=== PATIENT | female | born 1990 | race African-American/Black ===

== ENCOUNTER 2018-10-22 12:04 | Day surgery (SDC) | payer BC ==
[2018-10-22 12:39] VITALS: BMI 40.4
[2018-10-22] MEDS ORDERED: hydrALAZINE 20 MG/ML VIAL SLOW IVP PRN (12:55)
--- NOTE | 2018-10-22 13:01 | PDOC.EVN ---
Event Note - Event Note Event Note: H&P Dictated Here for BP obs DX: CHTN on medication #[id number]
--- NOTE | 2018-10-22 13:15 | HP ---
TIME: 1255 hours. LOCATION: Labor and Delivery triage. REASON FOR EVALUATION: Chronic hypertension, on medication at 33 weeks. This is a patient of Dr. Muhammad. HISTORY OF PRESENT ILLNESS: This is a 28-year-old, G8, P5, with 4 prior C-sections at term and one (the last delivery) at 34 weeks due to preeclampsia, with known history of chronic hypertension, obesity, who arrives to Labor and Delivery for "increased blood pressures at home." She denies headaches or visual changes, but states that occasionally she does feel dizzy. She has no vaginal bleeding or leakage of fluid and she has good movement. She has been taking her blood pressure medicine daily. PAST MEDICAL HISTORY: Significant for obesity with a BMI of 40.4. She also has a history of chronic hypertension and she takes Procardia 30 mg XL daily. She is also on low-dose aspirin. MEDICATIONS: Include; 1. Procardia. 2. Baby aspirin. PAST SURGICAL HISTORY: Includes 5 prior C-sections. ALLERGIES: NONE. OBSTETRICS HISTORY: As previously dictated. REVIEW OF SYSTEMS: Complete review of systems was checked and is otherwise negative unless specified in the HPI. PHYSICAL EXAMINATION: VITAL SIGNS: Her blood pressure is 145/87 and 141/83, pulse is anywhere from 105 to 115, she is afebrile and respirations are 18 and nonlabored. GENERAL: She is in no acute distress. ABDOMEN: Gravid, soft, and nontender and there is no evidence of vaginal bleeding or leakage of fluid on perineal inspection. On monitors, heart tones are in the 140s and they are category I. There are no contractions on tocodynamometer. Interventions ordered. I have ordered a CBC and a CMP just for baseline record. ASSESSMENT: This is a patient with known chronic hypertension, who is a grand multiparous patient, at 33 weeks, with reassuring/reactive nonstress test with stable non-severe blood pressures. PLAN: 1. Reassurance given. 2. I have ordered a CMP and a CBC for baseline. 3. No evidence of severe pressures at this time. 4. We will likely follow up as an outpatient once her labs return. Job ID: [id number]
[2018-10-22 13:26] LABS: #Eosinphils 0.1 thou/uL (0.0-0.7); #Lymphocytes 1.5 thou/uL (1.20-3.40); #Monocytes 0.5 thou/uL (0.11-0.59); #Neutrophils 6.5 thou/uL (1.40-6.50); %Basophils 0.2 % (0.0-1.0); %Eosinophils 0.6 % (0.0-10.0); %Lymphocytes 17.7 % (21.0-51.0); %Monocytes 5.8 % (0.0-10.0); %Neutrophils 75.7 % (42.0-75.0); Hemoglobin 11.7 g/dL (12.0-16.0); Mean Corpuscular HGB CONC 33.3 g/dL (32.0-36.0); Mean Corpuscular Hemoglobin 28.4 pg (27.0-31.0); Mean Corpuscular Volume 85.3 fL (78.0-98.0); Mean Platelet Volume 10.9 fL (7.4-10.4); Platelet Count 145 thou/uL (130-400); Red Blood Cell (RBC) Count 4.11 mill/uL (4.20-5.40); White Blood Cell (WBC) Count 8.7 thou/uL (4.8-10.8)
--- NOTE | 2018-10-22 13:47 | PDOC.EVN ---
Event Note - Event Note Event Note: BPs nonsevere and ok on review
--- NOTE | 2018-10-22 13:47 | PDOC.EVN ---
Event Note - Event Note Event Note: CBC is normal CMP is pending
[2018-10-22 13:50] LABS: ALT (SGPT) Less than 7 U/L (8-55); AST (SGOT) 13 U/L (5-34); Albumin 3.5 g/dL (3.5-5.0); Alkaline Phosphatase 93 U/L (40-150); Anion Gap 11 mmol/L (10-20); BUN (Urea Nitrogen) 6 mg/dL (7.0-18.7); Bilirubin, Total 0.4 mg/dL (0.2-1.2); Calc. Creatinine Clearance 184 mL/min (70-130); Calcium 9.6 mg/dL (7.8-10.44); Carbon Dioxide 23 mmol/L (22-29); Chloride 106 mmol/L (98-107); Estimated GFR-MDRD Greater than 90; Globulin 3.8 g/dL (2.4-3.5); Glucose 103 mg/dL (70-105); Potassium 3.4 mmol/L (3.5-5.1); Protein, Total 7.3 g/dL (6.0-8.3); Sodium 137 mmol/L (136-145)
== END 2018-10-22 14:18 | disposition home or self-care (01) ==
LOC: L&D/OP 12:04
PROVIDERS: ATTEND Obstetrics & Gynecology
DX: O10.913 Unspecified pre-existing hypertension complicating pregnancy, third trimester (principal); O09.43 Supervision of pregnancy with grand multiparity, third trimester; O99.213 Obesity complicating pregnancy, third trimester; E66.9 Obesity, unspecified; Z79.82 Long term (current) use of aspirin; Z3A.33 33 weeks gestation of pregnancy
CPT/HCPCS: 36415; 80053; 85025; 99283

== ENCOUNTER 2019-02-18 10:50 | Outpatient (CLI) | payer BC ==
--- NOTE | 2019-02-18 11:09 | RAD ---
EXAM: Chest 2 views: HISTORY: Dyspnea COMPARISON: None. FINDINGS: There is a normal-sized cardiomediastinal silhouette. There is no evidence of consolidation, mass, or pleural effusion. The bones are unremarkable. IMPRESSION: No evidence of acute cardiopulmonary disease
== END 2019-02-18 10:51 | disposition home or self-care (01) ==
LOC: RAD 10:50
PROVIDERS: ATTEND Internal Medicine
DX: R06.00 Dyspnea, unspecified (principal)
CPT/HCPCS: 71046

== ENCOUNTER 2019-07-03 05:21 | Emergency (ER) | payer BC ==
[2019-07-03 06:05] LABS: #Basophils 0.1 thou/uL (0.0-0.2); #Eosinphils 0.1 thou/uL (0.0-0.7); #Lymphocytes 2.3 thou/uL (1.20-3.40); #Monocytes 0.6 thou/uL (0.11-0.59); #Neutrophils 4.8 thou/uL (1.40-6.50); %Basophils 1.5 % (0.0-1.0); %Eosinophils 1.8 % (0.0-10.0); %Monocytes 7.1 % (0.0-10.0); %Neutrophils 60.6 % (42.0-75.0); Hemoglobin 13.2 g/dL (12.0-16.0); Mean Corpuscular HGB CONC 31.6 g/dL (32.0-36.0); Mean Corpuscular Hemoglobin 27.3 pg (27.0-31.0); Mean Corpuscular Volume 86.3 fL (78.0-98.0); Mean Platelet Volume 10.5 fL (7.4-10.4); Platelet Count 220 thou/uL (130-400); RBC Distribution Width 13.2 % (11.5-14.5); Red Blood Cell (RBC) Count 4.85 mill/uL (4.20-5.40); White Blood Cell (WBC) Count 7.9 thou/uL (4.8-10.8)
[2019-07-03 06:10] LABS: BHCG - Serum Negative (NEGATIVE); Pregs Control Background? CLEAR/WHITE (CLR/WHITE); Pregs Control Bar Appear? YES (CONTROL BAR)
[2019-07-03 06:30] LABS: ALT (SGPT) 17 U/L (8-55); AST (SGOT) 25 U/L (5-34); Albumin 4.3 g/dL (3.5-5.0); Alkaline Phosphatase 111 U/L (40-110); Anion Gap 16 mmol/L (10-20); BUN (Urea Nitrogen) 13 mg/dL (7.0-18.7); Bilirubin, Total 0.4 mg/dL (0.2-1.2); Calc. Creatinine Clearance 0 mL/min (70-130); Calcium 9.4 mg/dL (7.8-10.44); Carbon Dioxide 21 mmol/L (22-29); Chloride 105 mmol/L (98-107); Estimated GFR-MDRD Greater than 90; Globulin 4.1 g/dL (2.4-3.5); Glucose 107 mg/dL (70-105); Potassium 4.2 mmol/L (3.5-5.1); Protein, Total 8.4 g/dL (6.0-8.3); Sodium 138 mmol/L (136-145)
--- NOTE | 2019-07-03 08:17 | CT ---
PRELIMINARY REPORT/[facility]/EMERGENCY AFTER HOURS PROCEDURE: EXAM: CTA Chest, With Contrast. DATE/ TIME: 07/03/2019, 6:10 AM INDICATION: Palpitations on and off x 2 weeks. Left-sided neck pain. TECHNIQUE: During the rapid intravenous administration of 100 mL Isovue-370, helical CT of the chest was performed utilizing angiographic protocol. MPRs and multiplanar MIPs were generated and reviewe d. Exam was performed using one or more of the following dose reduction techniques: automated expos ure control, adjustment of the mA and/or kV according to patient size, or use of iterative reconstruc tion technique. COMPARISON: None. FINDINGS: The heart is not enlarged. Pulmonary arterial system is well-opacified and there is no in traluminal filling defect. Aorta is without aneurysm or dissection. There is no hilar, mediastinal, supraclavicular or axillary lymphadenopathy. The lung parenchyma is clear. There is no pleural eff usion. Imaging continues into the abdomen to the level of the renal artery takeoffs. Visualized liver has a coarse parenchymal pattern and is hypoattenuated consistent with fatty infiltration. No upper abdom inal acute pathology is seen. A moderate amount of extrathoracic and extra-abdominal adipose tissue is noted. Bony thorax is intact, as visualized. IMPRESSION: No pulmonary thromboembolism. No aortic dissection. ELECTRONICALLY SIGNED BY: Slim Cain DO Jul 03, 2019 6:32:19 AM CDT This report is intended for review by the ordering physician only, in accordance of law. If you recei ve this report in error, please call [facility] at [phone]. FINAL REPORT CT ANGIOGRAM CHEST WITH 3D RENDERING: EMERGENCY AFTER HOURS EXAM TIME: 6:09 AM. DATE: 07/03/2019. No convincing CT evidence for acute pulmonary embolism. No evidence of aortic aneurysm or dissection . No other acute process. This report is in agreement with the preliminary report. POS: RRE
--- NOTE | 2019-07-04 14:45 | EKG ---
Test Reason : Blood Pressure : / mmHG Vent. Rate : 115 BPM Atrial Rate : 115 BPM P-R Int : 162 ms QRS Dur : 068 ms QT Int : 324 ms P-R-T Axes : 036 025 -48 degrees QTc Int : 448 ms Sinus tachycardia Anterior infarct , age undetermined T wave abnormality, consider inferolateral ischemia Abnormal ECG Confirmed by RODRI BONILLA ([id number]), international editorial producer LATASHA GARDUNO ([id number]) on 07/04/2019 2:44:57 PM Referred By: Confirmed By:RODRI BONILLA
== END 2019-07-03 06:40 | disposition home or self-care (01) ==
LOC: ERS 05:21
DX: R00.2 Palpitations (principal); R00.0 Tachycardia, unspecified
CPT/HCPCS: 36415; 71275; 80053; 84443; 84703; 85025; 93005

== ENCOUNTER 2020-01-21 00:18 | Emergency (ER) | payer BC ==
[2020-01-21 02:43] LABS: BHCG - Serum Negative (NEGATIVE); Pregs Control Background? CLEAR/WHITE (CLR/WHITE); Pregs Control Bar Appear? YES (CONTROL BAR)
[2020-01-21 02:47] LABS: #Basophils 0.1 thou/uL (0.0-0.2); #Eosinphils 0.2 thou/uL (0.0-0.7); #Lymphocytes 2.6 thou/uL (1.20-3.40); #Monocytes 0.6 thou/uL (0.11-0.59); #Neutrophils 5.9 thou/uL (1.40-6.50); %Basophils 0.6 % (0.0-1.0); %Eosinophils 1.7 % (0.0-10.0); %Lymphocytes 28.4 % (21.0-51.0); %Monocytes 5.9 % (0.0-10.0); %Neutrophils 63.5 % (42.0-75.0); Hemoglobin 13.8 g/dL (12.0-16.0); Mean Corpuscular HGB CONC 33.6 g/dL (32.0-36.0); Mean Corpuscular Volume 86.3 fL (78.0-98.0); Mean Platelet Volume 8.9 fL (7.4-10.4); Platelet Count 227 thou/uL (130-400); RBC Distribution Width 13.1 % (11.5-14.5); Red Blood Cell (RBC) Count 4.75 mill/uL (4.20-5.40); White Blood Cell (WBC) Count 9.3 thou/uL (4.8-10.8)
[2020-01-21 03:01] LABS: ALT (SGPT) 15 U/L (8-55); AST (SGOT) 15 U/L (5-34); Albumin 4.4 g/dL (3.5-5.0); Alkaline Phosphatase 96 U/L (40-110); Anion Gap 13 mmol/L (10-20); BUN (Urea Nitrogen) 11 mg/dL (7.0-18.7); Bilirubin, Total 0.6 mg/dL (0.2-1.2); Calc. Creatinine Clearance 0 mL/min (70-130); Calcium 9.3 mg/dL (7.8-10.44); Carbon Dioxide 25 mmol/L (22-29); Chloride 106 mmol/L (98-107); Estimated GFR-MDRD Greater than 90; Globulin 3.9 g/dL (2.4-3.5); Glucose 105 mg/dL (70-105); Potassium 3.6 mmol/L (3.5-5.1); Protein, Total 8.3 g/dL (6.0-8.3); Sodium 140 mmol/L (136-145)
[2020-01-21 03:11] LABS: Bilirubin Negative (Negative); Blood, Urine Trace (Negative); Clarity Clear (Clear); Glucose, Urine (Dipstick) Normal (Negative); Ketone, Urine Negative (Negative); Leukocyte Negative Leu/uL (Negative); Nitrite Negative (Negative); Protein, Urine (Dipstick) Negative (Neg-Trace); RBC/HPF 0-3 HPF (0-3); Squamous Epithelial 0-3 HPF (0-3); Urobilinogen Normal mg/dL (Less than 2); WBC/HPF 0-3 HPF (0-3)
[2020-01-21 03:19] LABS: Bacteria/HPF 1+ HPF (None Seen)
--- NOTE | 2020-01-21 07:57 | RAD ---
XR Chest 1 View Portable HISTORY: Fever, headache, dizziness COMPARISON: 02/18/2019 FINDINGS: The heart size is normal. The lungs are well expanded without focal areas of consolidation, pneumothorax or pleural effusions. IMPRESSION: No radiographic evidence of acute cardiopulmonary process.
--- NOTE | 2020-01-21 08:47 | CT ---
PRELIMINARY REPORT/[facility]/EMERGENCY AFTER HOURS PROCEDURE EXAM: CTA Chest with Intravenous Contrast CLINICAL HISTORY: 29-year-old female presents the emergency department with complaint of fever and he adache. Patient stated that for the past 5 days she has been experiencing diffuse myalgias primary in her upper body. TECHNIQUE: Axial CTA images of the chest with intravenous contrast. Three-dimensional MIP/volume rend ered reformations were performed. CONTRAST: With; ISOVUE 370,100mL COMPARISON: 07/03/2019 FINDINGS: PULMONARY ARTERIES There is no intraluminal filling defect suspicious for PE. AORTA No thoracic aortic aneurysm or dissection. LUNGS The lungs are clear. No pulmonary mass. No focal airspace consolidation. PLEURAL SPACES No pleural effusion. No pneumothorax. HEART AND MEDIASTINUM No cardiomegaly. No significant pericardial effusion. LYMPH NODES No lymphadenopathy. BONES No focal osseous abnormality or acute fracture. CHEST WALL AND UPPER ABDOMEN Images through the upper abdomen are unremarkable. The chest wall is unremarkable. IMPRESSION: Unremarkable CTA of the chest. ELECTRONICALLY SIGNED BY: Amber Ji DO Jan 21, 2020 3:52:26 AM ADJUNCT INSTRUCTOR OF WOMEN'S STUDIES This report is intended for review by the ordering physician only, in accordance of law. If you recei ve this report in error, please call [facility] at [phone]. FINAL REPORT EMERGENT AFTER HOURS CTA OF THE CHEST WITH CONTRAST: COMPARISON: 07/03/2019. FINDINGS/IMPRESSION: I agree with the findings and impression given in the preliminary report per [facility] physici an. No evidence of pulmonary thromboembolism. POS: EAA
== END 2020-01-21 04:15 | disposition home or self-care (01) ==
LOC: ERS 00:18
DX: B34.9 Viral infection, unspecified (principal); R00.0 Tachycardia, unspecified; I10 Essential (primary) hypertension
CPT/HCPCS: 71045; 71275; 80053; 81003; 81015; 84703; 85025; 85379; 93005; 94760

== ENCOUNTER 2020-04-03 23:48 | Observation (INO) | payer BC ==
[2020-04-04 00:28] LABS: #Eosinphils 0.1 thou/uL (0.0-0.7); #Lymphocytes 2.3 thou/uL (1.20-3.40); #Monocytes 0.4 thou/uL (0.11-0.59); #Neutrophils 2.6 thou/uL (1.40-6.50); %Basophils 0.5 % (0.0-1.0); %Eosinophils 1.3 % (0.0-10.0); %Lymphocytes 43.1 % (21.0-51.0); %Neutrophils 48.1 % (42.0-75.0); Hemoglobin 12.7 g/dL (12.0-16.0); Mean Corpuscular HGB CONC 32.8 g/dL (32.0-36.0); Mean Corpuscular Hemoglobin 28.2 pg (27.0-31.0); Mean Corpuscular Volume 85.8 fL (78.0-98.0); Mean Platelet Volume 8.8 fL (7.4-10.4); Platelet Count 219 thou/uL (130-400); Red Blood Cell (RBC) Count 4.52 mill/uL (4.20-5.40); White Blood Cell (WBC) Count 5.4 thou/uL (4.8-10.8)
[2020-04-04 00:49] LABS: ALT (SGPT) 67 U/L (8-55); AST (SGOT) 35 U/L (5-34); Alkaline Phosphatase 89 U/L (40-110); Anion Gap 13 mmol/L (10-20); BUN (Urea Nitrogen) 12 mg/dL (7.0-18.7); Bilirubin, Total 0.4 mg/dL (0.2-1.2); Calc. Creatinine Clearance 0 mL/min (70-130); Calcium 8.5 mg/dL (7.8-10.44); Carbon Dioxide 25 mmol/L (22-29); Chloride 105 mmol/L (98-107); Globulin 3.1 g/dL (2.4-3.5); Glucose 119 mg/dL (70-105); Potassium 3.7 mmol/L (3.5-5.1); Protein, Total 7.1 g/dL (6.0-8.3); Sodium 139 mmol/L (136-145)
[2020-04-04 01:05] LABS: BHCG - Serum Negative (NEGATIVE); Pregs Control Background? CLEAR/WHITE (CLR/WHITE); Pregs Control Bar Appear? YES (CONTROL BAR)
--- NOTE | 2020-04-04 08:50 | PDOC.HHP ---
Hospitalist HPI - History of Present Illness Blurry vision History of Present Illness: Ms. Mathur is a 29-year-old female with a past medical history of gestational hypertension who presents with 1 week of blurry vision. Patient reports that about 1 week ago she developed a mild headache with some blurry vision. She saw an outpatient fixer supervisor who reported that she had papilledema and was concern for pseudotumor cerebri. Patient states that she was instructed by the fixer supervisor to present to the emergency room if she had any new or worsening symptoms and was scheduled for off outpatient follow-up in the ophthalmology clinic in 2 weeks. Patient reports that early this morning she woke up and felt lightheaded as well as had some vague tingling sensation all over her body prompting her to present to the emergency room. Patient denies any chest pain, shortness of breath, abdominal pain. Does endorse some mild nausea this morning which has since resolved. Denies any changes to her vision and states that her blurry vision has been consistent and is the same since when she last saw the fixer supervisor. She denies any curtain like shades, spots in her vision, or obvious field deficits. Describes her blurry vision as worse around the edges but feels as though she sees the whole picture. She has never had symptoms like this in the past. She denies any numbness weakness or localized paresthesias. She denies any neck pain fever chills or myalgias. She denies any recent t ravel. 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 She was on anticoagulation for 6 months after this episode, and has not been taking any anticoagulation in years. She denies any swelling in her legs. ED Course: In the emergency room initial vital signs 131/86, 95, 18, 98.8, 100% on room air. EKG showed normal ST segments with nonspecific T wave inversions. Troponin less than 0.010. Beta hCG negative. H/H 12.7/38.7, WBC 5.4, platelets 219. Lactic acid 0.6. BUNs/CR 12/0.81. Sodium 139, potassium 3.7, glucose 119. AST/ALT 35/67. Alk phos 89. Head CT showed nonspecific signs consistent with idiopathic intracranial hypertension including osseous thinning of the mastoid cells and thinning of the sella turcica/bilateral bony sinus. Radiologist official read pending. Hospitalist ROS - Review of Systems Constitutional: denies: fever, chills, sweats, weakness, malaise, other Eyes: reports: vision change. denies: pain, conjunctivae inflammation, eyelid inflammation, redness, other ENT: denies: ear pain, ear discharge, nose pain, nose discharge, nose congestion, mouth pain, mouth swelling, throat pain, throat swelling, other Respiratory: denies: cough, dry, shortness of breath, hemoptysis, SOB with excertion, pleuritic pain, sputum, wheezing, other Cardiovascular: reports: light headedness. denies: chest pain, palpitations, orthopnea, paroxysmal noc. dyspnea, edema, other Gastrointestinal: denies: nausea, vomiting, abdominal pain, diarrhea, constipation, melena, hematochezia, other Genitourinary: denies: dysuria, frequency, incontinence, hematuria, retention, other Musculoskeletal: denies: neck pain, shoulder pain, arm pain, back pain, hand pain, leg pain, foot pain, other Skin: denies: rash, lesions, andriy, bruising, other Neurological: denies: weakness, numbness, incoordination, change in speech, confusion, seizures, other - Medication Medications: New medications include Metoprolol for palpitations Hospitalist History - Past Medical History Other Medical History: Past medical history includes Hypertension - Past Surgical History Other Surgical History: Past surgical history includes x6 of note one was complicated by placenta accreta which also virtually resulted in a pulmonary embolism. - Family History Other Family History: Patient reports family history of hypertension and skin cancer in her mom. - Social History Smoking Status: Never smoker Alcohol: reports: None Drugs: reports: none Living Situation: With Family Activity level: independent ambulation - Exam General Appearance: NAD, awake alert General - other findings: Comfortable, sitting up in bed Eye: PERRL, anicteric sclera Eye - other findings: Funduscopic exam, papilledema bilaterally, no visiual field defects to conf ENT: normocephalic atraumatic, no oropharyngeal lesions, moist mucosa Neck: supple, symmetric, no JVD, no thyromegaly, no lymphadenopathy, no carotid bruit Heart: RRR, no murmur, no gallops, no rubs, normal peripheral pulses Respiratory: CTAB, no wheezes, no rales, no ronchi, normal chest expansion, no tachypnea, normal percussion Gastrointestinal: soft, non-tender, non-distended, normal bowel sounds, no palpable masses, no hepatomegaly, no splenomegaly, no bruit Extremities: no cyanosis, no clubbing, no edema Skin: normal turgor, no lesions, no rashes Neurological: cranial nerve grossly intact, normal sensation to touch, no weakness, no focal deficits, no new deficit Musculoskeletal: normal tone, normal strength, no muscle wasting Psychiatric: normal affect, normal behavior, A&O x 3 Hospitalist Results - Labs Result Diagrams: 04/04/20 00:19 04/04/20 00:19 Lab results: WBC 5.4 thou/uL (4.8-10.8) 04/04/20 00:19 Hgb 12.7 g/dL (12.0-16.0) 04/04/20 00:19 Hct 38.7 % (36.0-47.0) 04/04/20 00:19 MCV 85.8 fL (78.0-98.0) 04/04/20 00:19 Plt Count 219 thou/uL (130-400) 04/04/20 00:19 Neutrophils % 48.1 % (42.0-75.0) 04/04/20 00:19 Sodium 139 mmol/L (136-145) 04/04/20 00:19 Potassium 3.7 mmol/L (3.5-5.1) 04/04/20 00:19 Chloride 105 mmol/L (98-107) 04/04/20 00:19 Carbon Dioxide 25 mmol/L (22-29) 04/04/20 00:19 BUN 12 mg/dL (7.0-18.7) 04/04/20 00:19 Creatinine 0.81 mg/dL (0.6-1.1) 04/04/20 00:19 Glucose 119 mg/dL (70-105) H 04/04/20 00:19 Lactic Acid 0.6 mmol/L (0.5-2.2) 04/04/20 00:19 Calcium 8.5 mg/dL (7.8-10.44) 04/04/20 00:19 Total Bilirubin 0.4 mg/dL (0.2-1.2) 04/04/20 00:19 AST 35 U/L (5-34) H 04/04/20 00:19 ALT 67 U/L (8-55) H 04/04/20 00:19 Alkaline Phosphatase 89 U/L (40-110) 04/04/20 00:19 Troponin I Less than 0.010 ng/mL (< 0.028) 04/04/20 00:13 B-Natriuretic Peptide Less than 10.0 pg/mL (0-100) 04/04/20 00:19 Serum Total Protein 7.1 g/dL (6.0-8.3) 04/04/20 00:19 Albumin 4.0 g/dL (3.5-5.0) 04/04/20 00:19 Hospitalist H&P A/P - Plan Plan: Blurry vision 29-year-old female with blurry vision x1 week which is constant associated with mild headache dizziness and vague paresthesias. No meningeal signs on exam. Brudzinski's, Kernig's negative. No neck tenderness. Patient afebrile with normal WBC. Papilledema on exam bilaterally. No significant increased IOP by palpation. No visual field defects when tested by confrontation. No conjunctival injection, obvious signs of trauma. Extraocular movements intact. Neuro exam nonfocal. Cranial nerves intact. No pronator drift. Normal cerebellar function test. CT scan negative for hemorrhage, but did show nonspecific signs consistent with idiopathic intracranial hypertension. Patient normotensive. Patient is status post hysterectomy and is not on OCPs or any hormonal control methods. Symptoms currently most consistent with pseudotumor cerebri versus central venous thrombosis. Low suspicion for infectious process at this time, however will check CSF for Gram stain/culture and viral studies. Case discussed with Dr. Rhodes who agreed with stat MRI with venogram and LP to measure opening pressure. Will admit patient to neurology unit for further work-up and monitoring. Plan STAT neurology consult STAT MRA with venogram STAT LP with opening pressure, CSF studies Telemetry monitoring, CVA rule out q4 neurochecks Vitamin B12, folate, TSH CRP, ESR, ROMARIO History of pulmonary embolism Patient with history of pulmonary embolism which was provoked after complicated by placenta accreta. Patient was on anticoagulation with Lovenox for 6 months years ago. She denies any lower extremity swelling, shortness of breath. History raises suspicion for central venous thrombus will obtain MRA with venogram to assess. Plan MRI of venogram Transaminitis Patient with very mild transaminitis. AST/ALT 35/67. Alk phos 89, T bili 0.4. Patient without abdominal pain or GI symptoms. Will check hepatitis panel. Patient will need to follow-up with her primary care provider for continued monitoring and outpatient evaluation. Plan Trend Hepatitis panel Outpatient follow-up Full code Case discussed with attending physician. Dr. Arana.
--- NOTE | 2020-04-04 08:57 | RAD ---
PORTABLE CHEST: 04/04/20 PROVIDED CLINICAL HISTORY: Shortness of breath. COMPARISON: 01/21/2020 FINDINGS: Cardiac and mediastinal silhouette is within normal limits. No focal consolidation, pleural fluid or pneumothorax apparent. IMPRESSION: No evidence for an acute cardiopulmonary process. POS: PRIETO
[2020-04-04] MEDS ORDERED: Aspirin 81 mg Enteric Coated Tablet PO SCH (09:00)
--- NOTE | 2020-04-04 09:45 | CT ---
PRELIMINARY REPORT/[facility]/EMERGENCY AFTER HOURS PROCEDURE: EXAM: CT head without contrast CLINICAL HISTORY: Blurred vision, concern for papilledema/pseudotumor COMPARISONS: None provided. TECHNIQUE: CT imaging of the head without contrast, with multiplanar reconstructions. FINDINGS: BRAIN: Brain parenchymal attenuation and morphology are normal. Jimenez-white matter differentiation is maintai yissel. No acute intracranial hemorrhage. No mass-effect or midline shift. 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 VENTRICLES/CSF SPACES: Ventricular size and morphology normal. Extra-axial CSF spaces are normal. ORBITS: Imaged orbits are normal. PARANASAL SINUSES: Imaged paranasal sinuses are clear. MASTOID/MIDDLE EARS: Small amount of posterior left mastoid fluid. BONES: There is osseous diverticular appearance of the lateral transverse/sigmoid sinuses. Osseous thinning of the sigmoid plate bilaterally, with possible left sigmoid plate dehiscence. There is suggestion of osseous thinning/dehiscence of the floor of the sella turcica, although only e valuated on multiplanar imaging reconstructed from processed axial images. SCALP SOFT TISSUES: Normal. IMPRESSION: 1. No evidence of intracranial mass lesion or other acute intracranial abnormality. 2. Bony appearance of the lateral transverse sinuses/sigmoid sinuses suggestive of sigmoid sinus dive rticula. Additionally there is osseous thinning of the sigmoid plates along the posterior mastoid air cells, with possible osseous dehiscence on the left. Although nonspecific, findings can be seen with idiopathic intracranial hypertension. 3. Small amount of nonspecific posterior left mastoid fluid. 4. Likely empty sella morphology of the pituitary gland, and suggestion of osseous thinning versus de hiscence of the floor of the sella turcica. This can also be seen with idiopathic intracranial hypert ension. ELECTRONICALLY SIGNED BY: Constantin Couch MD Apr 04, 2020 1:31:14 AM COSMETOLOGIST This report is intended for review by the ordering physician only, in accordance of law. If you recei ve this report in error, please call [facility] at [phone]. FINAL REPORT EMERGENCY AFTER HOURS CT BRAIN: IMPRESSION: Agree with the preliminary interpretation. There is no evidence for intracranial hemorrhage or mass e ffect. POS: PRIETO
--- NOTE | 2020-04-04 09:48 | RAD ---
Lumbar puncture with fluoroscopic guidance: 04/04/2020 COMPARISON: None HISTORY: Blurred vision, headache, assess for pseudotumor cerebri FINDINGS: Informed consent obtained prior to the procedure. School Bus Driver/Custodian imaging demonstrates 5 lumbar type vertebral bodies with intact pedicles on the frontal imaging . Skin overlying the lower lumbar spine was prepped and draped in normal sterile fashion. Skin was anes thetized with 1% buffered lidocaine at the L3-4 level. With intermittent fluoroscopic guidance, a 22-gauge spinal needle was advanced into the thecal sac an d removal of the stylet yields clear cerebrospinal fluid. Opening pressure was elevated, measuring approximately 40 cm H2O. 8-9 cc of clear CSF was removed and sent to the laboratory for assessment. The patient tolerated the procedure well IMPRESSION: Successful lumbar puncture. Elevated opening pressure as above.
--- NOTE | 2020-04-04 09:50 | MRI ---
MR venogram brain: 04/04/2020 COMPARISON: None HISTORY: Headache, papilledema, clinical concern for pseudotumor cerebri. Elevated opening pressure o n recent lumbar puncture TECHNIQUE: Routine [id number] noncontrast enhanced MR venogram of the brain obtained. FINDINGS: The internal jugular veins, transverse sinuses, sigmoid sinuses, superior sagittal sinus, o f straight sinus, vein of Isaiah, and internal cerebral veins appear patent. There is symmetric attenuation involving bilateral transverse sinuses and there is mild signal loss in the region of the torcula. These findings, in combination with post contrast brain MRI also performed 04/04/2020, are felt to be on the basis of flow related artifact. There is no convincing evidence for dural venous si nus thrombosis. IMPRESSION: No convincing evidence for dural venous sinus thrombosis.
--- NOTE | 2020-04-04 09:57 | MRI ---
Brain MRI with and without contrast: 04/04/2020 COMPARISON: None HISTORY: Papilledema, headache, elevated opening pressure on recent lumbar puncture. Clinical concern for pseudotumor cerebri FINDINGS: The diffusion weighted imaging demonstrates no evidence for acute infarction. No abnormal white matter signal intensity is noted on the axial T2 or axial FLAIR imaging. No signifi cant paranasal sinus or mastoid air cell opacification. Arterial flow voids at the axial level of the skull base appear grossly unremarkable on the T2-weighted imaging. There is prominence of Meckel's cave bilaterally and the sella turcica is partially empty. The postcontrast imaging demonstrates no abnormal enhancement within the brain parenchyma. Benign tonsillar ectopia is incidentally noted. IMPRESSION: No evidence for intracranial hemorrhage or acute infarction. No mass lesion/mass effect o r abnormal enhancement. Partially empty sella turcica and prominence of the Meckel's cave bilaterally, which can be seen with pseudotumor cerebri.
[2020-04-04 10:07] VITALS: BMI 37.3
[2020-04-04 10:56] LABS: Syphilis Antibody Nonreactive (Nonreactive); Syphilis Antibody Index 0.05 S/CO (<1.00 Non-Reactive)
[2020-04-04 11:06] LABS: CSF, Glucose 59 mg/dl (40-70); CSF, Protein 25 mg/dL (15-40)
--- NOTE | 2020-04-04 11:12 | CON ---
DATE OF CONSULTATION: 04/04/2020 IMPRESSION: Pseudotumor cerebri. PLAN: 1. Diamox 500 mg b.i.d. 2. Office followup in 1 month. 3. Follow up with Ophthalmology in 1 month. HISTORY OF PRESENT ILLNESS: Ms. Mathur is 29-year-old black female who developed headache and blurred vision about a week ago. There was no changes in medication or other inciting events that she could identify. The vision stayed fairly persistently blurred. She went to a local mercantile reporter. She was diagnosed with papilledema. She was sent to the emergency room for evaluation. Initial CT scan was unremarkable. Followup MRI of the brain and MRV did not show any evidence of venous occlusion. She had a lumbar puncture done by Radiology, which reportedly showed an opening pressure of 40 cm of water and 9 mL of fluid were removed. The patient is otherwise stable at this point. PAST MEDICAL HISTORY: Otherwise negative. ALLERGIES: NONE. SOCIAL HISTORY: No tobacco or alcohol. FAMILY HISTORY: Noncontributory. MEDICATION LIST: None. REVIEW OF SYSTEMS: 10-system review of systems is otherwise negative. PHYSICAL EXAMINATION: GENERAL: She is a somewhat overweight young woman, in no acute distress. VITAL SIGNS: Pulse 86, respirations 16. HEENT: Pupils are equal and reactive. Conjunctivae clear. Oropharynx clear. There was mild papilledema present bilaterally. NECK: Supple. No lymphadenopathy. ABDOMEN: Soft, nontender. EXTREMITIES: No cyanosis or edema. SKIN: Clear. NEUROLOGIC: She is alert and appropriate. Her speech is fluent and clear. She has no focal deficits. IMAGING STUDIES: Reviewed. SUMMARY: This is a young woman with papilledema and unremarkable imaging studies. Her clinical picture is consistent with pseudotumor cerebri. I will start her on Diamox and I will follow up with her in the office. Job ID: [id number]
[2020-04-04 11:48] LABS: CSF Source CSF; Clarity Clear (Clear); Tube # 4
[2020-04-04 11:49] LABS: Color Of CSF Supernatant COLORLESS (Colorless); Unspun CSF Color COLORLESS (Colorless)
[2020-04-04 11:50] LABS: Tube # 1
[2020-04-04] MEDS ORDERED: Magnevist 469MG/ML 20 ML VIAL ONE (12:03)
[2020-04-04 14:35] LABS: Hemoglobin A1c 5.5 % (4.0-6.0)
[2020-04-04 17:17] LABS: HBCM Index 0.19 S/CO (0-0.79); HBSAg Index 0.36 S/CO (0-0.99); Hep A IgM AB Non-Reactive (NonReactive); Hep A IgM S/CO 0.21 S/CO (0-0.79); Hep B Surf Ag Non-Reactive S/CO (NonReactive); Hep C IgG Ab Non-Reactive (NonReactive); Hep C Index 0.58 S/CO (0-0.79); Hepatitis B Core IgM Abs Non-Reactive (NonReactive); Thyroid Stimulating Hormone 0.2982 uIU/mL (0.35-4.94)
--- NOTE | 2020-04-04 20:40 | PDOC.EVN ---
Event Note - Event Note Event Note: Patient started on acetazolamide for psuedotumor cerebri. Patient is lactating and breast feeds her 1.5 year old child. Advised patient that this medication does pass through breast milk and that because there is limited data in the safety of this medication in breast feeding there are potential risks to the child if she chooses to continue breast feeding. Counseled patient that the automation software engineer of the medication advised women to decide to either stop breast- feeding or stop the medication. Advised patient that it was our recommendation that she continue the medication and stop breast-feeding as her symptoms were severe enough to affect her vision. Printed literature from pharmaceutical database on risks of acetazolamide use in for patient to review.
[2020-04-04] MEDS ORDERED: AcetaZOLAMIDE 250 MG TAB PO SCH (21:00)
[2020-04-04] MEDS: AcetaZOLAMIDE 250 MG TAB PO SCH (21:05)
[2020-04-04 23:05] LABS: SARS-CoV-2 PCR by NAA DETECTED (NotDetected)
[2020-04-05 05:17] LABS: Cardiac Risk 2.9 (Less than 4.5)
[2020-04-05] MEDS: AcetaZOLAMIDE 250 MG TAB PO SCH (07:57)
[2020-04-05 11:44] VITALS: BP 111/69; TEMP 98.6
[2020-04-06 15:38] LABS: West Nile Virus IgG Ab - CSF Positive (Negative); West Nile Virus IgM Ab - CSF Negative (Negative)
--- NOTE | 2020-04-07 10:06 | DIS ---
DATE OF ADMISSION: 04/04/2020 DATE OF DISCHARGE: 04/05/2020 PRIMARY CARE PROVIDER: Sharon Liao MD. DISPOSITION: Discharged home. FINAL DIAGNOSES: Pseudotumor cerebri, hypertension, positive COVID. DISCHARGE MEDICATIONS: 1. Diamox 500 mg p.o. b.i.d. 2. Metoprolol-XL 25 mg p.o. daily. ALLERGIES: NONE. CODE STATUS: Full. PENDING AT THE TIME OF DISCHARGE: Nothing. CONSULTATIONS: Dr. Ethan Rhodes, Neurology. PROCEDURES: Lumbar puncture. HOSPITAL COURSE: The patient was admitted to the Hospitalist Service through [facility] with one week of blurred vision, some mild headaches. Saw an outpatient resident care assistant, reported she had papilledema and was concerned for pseudotumor cerebri. She presented to our emergency room. Her workup including laboratory, SARS positive on the RNA. CBC was unremarkable except for sedimentation rate of 47, metabolic profile showed some minimal transaminases 35, 67. A lumbar puncture was done which showed a colorless fluid, 2 red cells, total nucleated cells none, glucose 59. Reports of normal included brain MRI except a partially empty sella turcica. Brain MRA showed no evidence of deep venous sinus thrombosis. The patient is comfortable today. She says she still has blurred. She is comfortable with going home on the Diamox to see in the future. She will be continued on her antihypertensive medicine. We had a discussion per the COVID positive diagnosis. Chest is clear. She has no signs and symptoms, loss of taste, cough, etc. The treatment of COVID was discussed with her. She has been given the signs and symptoms that would cause her to return to the emergency room for worsening COVID. Follow up with her PCP in 1 week. Job ID: [id number] [facility]
== END 2020-04-05 13:06 | disposition home or self-care (01) ==
LOC: ERS 23:48 → ERHOLD 04-04 07:44 → INTOOBSV 04-04 07:44 → 2NO 04-04 14:55
PROVIDERS: ADMIT Internal Medicine; ATTEND Internal Medicine
PROC: 009U3ZX Drainage of Spinal Canal, Percutaneous Approach, Diagnostic (ICD-10-PCS; principal; 2020-04-04)
DX: U07.1 COVID-19 (principal); G93.2 Benign intracranial hypertension; I10 Essential (primary) hypertension; E23.6 Other disorders of pituitary gland; H47.10 Unspecified papilledema; Z79.899 Other long term (current) drug therapy
CPT/HCPCS: 36415; 62270; 70450; 70544; 70553; 71045; 80053; 80061; 80074; 82945; 83036; 83605; 83873; 83880; 84157; 84443; 84484; 84703; 85025; 85652; 86140; 86316; 86592; 86612; 86635; 86698; 86780; 86788; 86789; 87070; 87205; 87635; 88112; 89051; 93005; A9579; G0378; U0003; U0005

== ENCOUNTER 2020-11-18 07:59 | Outpatient (CLI) | payer BC | END 2020-11-18 08:00 | disposition home or self-care (01) | LOC: NM 07:59 | PROVIDERS: ATTEND Internal Medicine Endocrinology, Diabetes & Metabolism | DX: E03.9 Hypothyroidism, unspecified (principal) | CPT/HCPCS: 78014; A9509 ==

== ENCOUNTER 2021-02-08 12:07 | Outpatient (CLI) | payer BC ==
[2021-02-08 12:31] LABS: BHCG - Serum Negative (NEGATIVE); Pregs Control Background? CLEAR/WHITE (CLR/WHITE); Pregs Control Bar Appear? YES (CONTROL BAR)
== END 2021-02-08 12:08 | disposition home or self-care (01) ==
LOC: NM 12:07
PROVIDERS: ATTEND Internal Medicine Endocrinology, Diabetes & Metabolism
DX: E05.80 Other thyrotoxicosis without thyrotoxic crisis or storm (principal); E23.6 Other disorders of pituitary gland
CPT/HCPCS: 36415; 79005; 84703; A9517

== ENCOUNTER 2022-03-21 03:34 | Emergency (ER) | payer BC, SELFPAY ==
[2022-03-21] MEDS ORDERED: Magnesium 2 GM/50 ML BAG (IN WATER) ONE (05:09)
[2022-03-21] MEDS ORDERED: Ondansetron PF 4 MG/2 ML Vial ONE (05:35)
[2022-03-21 05:50] LABS: #Eosinphils 0.1 thou/uL (0.0-0.7); #Lymphocytes 1.7 thou/uL (1.20-3.40); #Monocytes 0.4 thou/uL (0.11-0.59); #Neutrophils 5.1 thou/uL (1.40-6.50); %Basophils 0.1 % (0.0-1.0); %Lymphocytes 23.3 % (21.0-51.0); %Neutrophils 69.6 % (42.0-75.0); Hemoglobin 14.1 g/dL (12.0-16.0); Mean Corpuscular HGB CONC 32.2 g/dL (32.0-36.0); Mean Corpuscular Volume 90.1 fl (78.0-98.0); Mean Platelet Volume 9.1 fL (7.4-10.4); Platelet Count 230 10x3/uL (130-400); RBC Distribution Width 13.1 % (11.5-14.5); Red Blood Cell (RBC) Count 4.86 mill/uL (4.20-5.40); White Blood Cell (WBC) Count 7.3 10x3/uL (4.8-10.8)
[2022-03-21 06:02] LABS: BHCG - Serum Negative (NEGATIVE); Pregs Control Background? CLEAR/WHITE (CLR/WHITE); Pregs Control Bar Appear? YES (CONTROL BAR)
[2022-03-21 06:14] LABS: ALT (SGPT) 13 U/L (8-55); AST (SGOT) 15 U/L (5-34); Albumin 4.4 g/dL (3.5-5.0); Alkaline Phosphatase 67 U/L (40-110); Anion Gap 12 mmol/L (10-20); BUN (Urea Nitrogen) 12 mg/dL (7.0-18.7); Bilirubin, Total 0.5 mg/dL (0.2-1.2); CK (CPK) 101 U/L (29-168); Calc. Creatinine Clearance 0 mL/min (70-130); Calcium 9.8 mg/dL (7.8-10.44); Carbon Dioxide 20 mmol/L (22-29); Chloride 108 mmol/L (98-107); Estimated GFR 78; Globulin 3.7 g/dL (2.4-3.5); Glucose 113 mg/dL (70-105); Magnesium 2.1 mg/dL (1.6-2.6); Potassium 3.7 mmol/L (3.5-5.1); Protein, Total 8.1 g/dL (6.0-8.3); Sodium 136 mmol/L (136-145)
[2022-03-21] MEDS ORDERED: Iopamidol-370 76% 500 ML 1 ML ONE (07:47)
== END 2022-03-21 08:53 | disposition home or self-care (01) ==
LOC: ERS 03:34
DX: R00.2 Palpitations (principal); I10 Essential (primary) hypertension
CPT/HCPCS: 36415; 71045; 71275; 80053; 82550; 83735; 84443; 84484; 84703; 85025; 85379; 93005; 96374; 96375; J2405; J3475; Q9967